=== PATIENT | male | born 1980 | race Caucasian/White ===

== ENCOUNTER 2020-12-21 20:09 | Emergency (ER) | payer MEDICAID ==
[~2020-12-21] VITALS: Ht 185.4 cm; Wt 100.0 kg
[2020-12-21 20:31] VITALS: BP 150/97
[2020-12-21] MEDS ORDERED: CEPH-585 PO (22:50)
[2020-12-21] MEDS ORDERED: TETanus/Pertussis (Acell)/Diphther VAC/PF (Tdap-Adult) 0.5ml syringe IMVAC ONE (22:50)
== END 2020-12-21 22:56 | disposition home or self-care (01) ==
LOC: ER 20:10
DX: S61.012A Laceration without foreign body of left thumb without damage to nail, initial encounter (principal); E78.00 Pure hypercholesterolemia, unspecified; W45.8XXA Other foreign body or object entering through skin, initial encounter; Y93.89 Activity, other specified; Y92.89 Other specified places as the place of occurrence of the external cause; Y99.8 Other external cause status
CPT/HCPCS: 90471; 90715; 99283